=== PATIENT | male | born 1970 | race Hispanic/Latino ===

== ENCOUNTER 2022-08-15 02:11 | Observation (INO) | payer BC ==
[2022-08-15] MEDS ORDERED: Morphine 4 MG/ML VIAL ONE (03:29)
[2022-08-15] MEDS ORDERED: Ondansetron PF 4 MG/2 ML Vial ONE ×2 (03:29→15:40)
[2022-08-15 03:46] LABS: #Basophils 0.1 thou/uL (0.0-0.2); #Eosinphils 0.2 thou/uL (0.0-0.7); #Monocytes 0.6 thou/uL (0.11-0.59); #Neutrophils 9.5 thou/uL (1.40-6.50); %Basophils 0.6 % (0.0-1.0); %Eosinophils 1.8 % (0.0-10.0); %Lymphocytes 19.8 % (21.0-51.0); %Monocytes 4.6 % (0.0-10.0); %Neutrophils 72.9 % (42.0-75.0); Mean Corpuscular HGB CONC 34.4 g/dL (32.0-36.0); Mean Corpuscular Hemoglobin 31.3 pg (27.0-31.0); Mean Corpuscular Volume 91.1 fl (78.0-98.0); Mean Platelet Volume 9.6 fL (7.4-10.4); Platelet Count 242 10x3/uL (130-400); RBC Distribution Width 12.2 % (11.5-14.5); Red Blood Cell (RBC) Count 4.47 mill/uL (4.70-6.10); White Blood Cell (WBC) Count 13.1 10x3/uL (4.8-10.8)
[2022-08-15 04:34] LABS: ALT (SGPT) 32 U/L (8-55); AST (SGOT) 22 U/L (5-34); Albumin 4.3 g/dL (3.5-5.0); Alkaline Phosphatase 68 U/L (40-110); Anion Gap 13 mmol/L (10-20); BUN (Urea Nitrogen) 15 mg/dL (8.4-25.7); Bilirubin, Total 0.4 mg/dL (0.2-1.2); Calc. Creatinine Clearance 0 mL/min (70-130); Calcium 8.9 mg/dL (7.8-10.44); Carbon Dioxide 22 mmol/L (22-29); Chloride 105 mmol/L (98-107); Estimated GFR 84; Globulin 2.6 g/dL (2.4-3.5); Glucose 153 mg/dL (70-105); Protein, Total 6.9 g/dL (6.0-8.3); Sodium 136 mmol/L (136-145)
[2022-08-15] MEDS ORDERED: Morphine 4 MG/ML VIAL SLOW IVP PRN (04:43)
[2022-08-15] MEDS ORDERED: Ondansetron ODT 4 MG TAB SL PRN (04:45)
[2022-08-15] MEDS ORDERED: Ondansetron PF 4 MG/2 ML Vial IVP PRN ×2 (04:45→16:28)
[2022-08-15 05:59] LABS: INR-International Normal Ratio 0.9; PTT 29.6 sec (22.9-36.1); Prothrombin Time 12.9 sec (12.0-14.7)
[2022-08-15 06:22] VITALS: BMI 25.1
[2022-08-15] MEDS: Sodium Chloride 0.9% 1,000 ML IV SCH ×2 (06:37→13:41)
[2022-08-15] MEDS ORDERED: Levofloxacin 500 mg/D5W 100 ml Premix Bag ONE (09:09)
[2022-08-15] MEDS ORDERED: Bupivacaine/Epinephrine 0.25% 30 ML VIAL ONE (15:31)
[2022-08-15] MEDS ORDERED: SUGAMMADEX SODIUM 200 MG/2 ML VIAL ONE (15:34)
[2022-08-15] MEDS ORDERED: fentaNYL PF 100 MCG/2 ML SYRINGE ONE (15:34)
[2022-08-15] MEDS ORDERED: HYDROmorphone 0.5 MG/0.5 ML SYRINGE ONE (15:34)
[2022-08-15] MEDS ORDERED: CEFAZOLIN 2 GM VIAL ONE (15:36)
[2022-08-15] MEDS ORDERED: Sodium Chloride 0.9% 100 ML ONE (15:36)
[2022-08-15] MEDS ORDERED: Rocuronium Bromide 10 MG/ML (10ML VIAL) ONE (15:40)
[2022-08-15] MEDS ORDERED: PROPOFOL 200 MG/20 ML VIAL ONE (15:40)
[2022-08-15] MEDS ORDERED: Dexamethasone 20 MG/5 ML VIAL ONE (15:40)
[2022-08-15] MEDS ORDERED: Ketorolac Tromethamine 30 MG/ML VIAL ONE (15:40)
[2022-08-15] MEDS ORDERED: Lidocaine 1% PF 5 ML VIAL ONE (15:40)
[2022-08-15] MEDS ORDERED: traMADol HCl 50 MG TAB PO SCH (18:00)
[2022-08-15 19:45] VITALS: BP 127/80; TEMP 97.8
[2022-08-15] MEDS ORDERED: Acetaminophen 500 MG TAB PO SCH (20:00)
== END 2022-08-15 20:59 | disposition home or self-care (01) ==
LOC: ERS 02:11 → ERHOLD 04:38 → T4-A 10:41
PROVIDERS: ADMIT Specialist; ATTEND Specialist
PROC: 0FT44ZZ Resection of Gallbladder, Percutaneous Endoscopic Approach (ICD-10-PCS; principal; 2022-08-15)
DX: K80.12 Calculus of gallbladder with acute and chronic cholecystitis without obstruction (principal); F17.210 Nicotine dependence, cigarettes, uncomplicated; Z79.82 Long term (current) use of aspirin
CPT/HCPCS: 36415; 76705; 85610; 85730; 86850; 86900; 86901; 88304; 94760; 96374; 96375; C1713; C1889; G0378; J1100; J1170; J1885; J1956; J2270; J2405; J2704; J3490; J7050